=== PATIENT | female | born 1990 | race African-American/Black ===

== ENCOUNTER 2022-06-02 17:32 | Emergency (ER) | payer OTHER, MEDICAID, SELFPAY ==
[2022-06-02 17:37] VITALS: BP 141/88; PULSE 78; RESP 18; TEMP 36.4; O2SAT 100
--- NOTE | 2022-06-02 19:00 | ED.DENTAL ---
HPI - Dental/Oral General Chief complaint: Dental/Oral <Saima Garay PA-C - Last Filed: 06/03/22 02:16> Stated complaint: sore throat and facial swelling <BLAZE Singh Last Filed: 06/03/22 02:16> Time Seen by Provider: 06/02/22 18:40 <BLAZE Singh Last Filed: 06/03/22 02:16> History of Present Illness HPI Narrative: Patient is a 32-year-old female here for evaluation of sore throat and tongue bumps for the past day. She notes that the sore throat is worse with swallowing, but she is tolerating her secretions. Denies any fevers, chills, shortness of breath, congestion. 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 She additionally had bilateral eye irritation last week that was treated with antibiotic drops by her PCP with improvement of her symptoms, but does note that the right eye is still somewhat irritated. Denies any changes to her vision. She does see an eye doctor, and she wears corrective lenses. <BLAZE Singh Last Filed: 06/03/22 02:16> Related Data Allergies/adverse reactions: Allergies Allergy/AdvReac Type Severity Reaction Status Date / Time Penicillins Allergy Unknown Unknown Verified 07/09/19 10:05 <BLAZE Singh Last Filed: 06/03/22 02:16> Review of Systems Review of Systems: Gen: Denies fevers or chills Eyes: Denies eye pain or visual change ENT: Reports sore throat and eye irritation Respiratory: Denies shortness of breath or cough CV: Denies chest pain or palpitations GI: Denies abdominal pain nausea, emesis or diarrhea : denies burning, urgency, frequency or hematuria Musculoskeletal: Denies back pain or muscle pain Neuro: Denies numbness, tingling, weakness or focal weakness Skin: Denies rash Except as documented, all other systems reviewed and negative <BLAZE Singh Last Filed: 06/03/22 02:16> Exam Narrative: APPEARANCE: Well appearing, no pain in distress, well-nourished. Head: Normocephalic and atraumatic. EYES: R eye slightly injected; no discharge noted. fluorescein exam without dendritic lesions or areas of uptake. PERRLA/EOMI NOSE: No nasal drainage EARS: External ear normal in appearance THROAT: villate papillae are noted to the tongue. posterior oropharynx is mildly erythematous; no tonsillar swelling or exudates. Mucous membranes are moist. NECK: Supple. No adenopathy, no masses. RESPIRATORY: Airway patent, respirations nonlabored. Clear to auscultation bilaterally, no rales, rhonchi, wheezing. CARDIOVASCULAR: Regular rate and rhythm without murmurs, rubs, or gallops. ABDOMINAL: Normoactive bowel sounds. Soft, nontender, nondistended. No rebound tenderness or guarding. MUSCULOSKELETAL: Extremities are warm and well-perfused. Moves all extremities well. No edema. NEURO: Normal speech. No focal neurologic deficits. SKIN: Skin is warm and dry. No rashes. PSYCHIATRIC: Normal affect/mood. <Saima Garay PA-C - Last Filed: 06/03/22 02:16> Course PSYCHIATRY RESIDENT/PA Physician Supervision For this patient encounter, I reviewed the PSYCHIATRY RESIDENT or PA documentation, treatment plan, and medical decision making <Dale Lujan MD - Last Filed: 06/03/22 12:58> Vital Signs Vital signs: Vital Signs Temperature 97.6 F 06/02/22 17:37 Pulse Rate 78 06/02/22 17:37 Respiratory Rate 18 06/02/22 17:37 Blood Pressure 141/88 H 06/02/22 17:37 Pulse Oximetry 100 06/02/22 17:37 Oxygen Delivery Room Air 06/02/22 17:37 Temperature 97.6 F 06/02/22 17:37 Pulse Rate 78 06/02/22 17:37 Respiratory Rate 18 06/02/22 17:37 Blood Pressure 141/88 H 06/02/22 17:37 Pulse Oximetry 100 06/02/22 17:37 Oxygen Delivery Room Air 06/02/22 17:37 <Saima Garay PA-C - Last Filed: 06/03/22 02:16
== END 2022-06-02 19:54 | disposition home or self-care (01) ==
LOC: ANHED 19:49
PROVIDERS: Emergency Provider Emergency Medicine
DX: B00.9 Herpesviral infection, unspecified (principal)
CPT/HCPCS: 99283